=== PATIENT | female | born 1925 | race Caucasian/White ===

== ENCOUNTER → 2017-02-13 | Outpatient (CLI) | payer OTHER ==
--- NOTE | 2017-02-13 13:07 | PCVCIMAG ---
APPROVED REPORT Exam: Nuclear Stress Test Indication: CAD Patient Location: Out-Patient Stress Nurse: Kia Stover RN, Vanesa Travis RN [place] Tech:Azam VillasenorCLARIBEL Ht: 5 ft 10 in Wt: 150 lbs BSA: 1.85 m2 HR: 65 bpm BP: 200/90 mmHg BMI: 21.5 Rhythm: NSR Medical History Medical History: Age, Hyperlipidemia, HTN, MO, CAD Medications: Coreg, Lisinopril, Amlodipine, Atorvastatin Allergies: Codeine, Plavix, Oxycodone Previous Cardiac Procedures: PCI 2014, MARY RCA, Ant Infarct- medtx, Cardiomyopthay 33% Pretest Chest Pain Characteristics: No chest pain Exercise History: Physically active Meds Held (24 hrs): Carvedilol Stress Test Details Stress Test: Pharmacologic stress testing performed using 0.4 mg of regadenoson per 5 mL given IV over 10 seconds. Reason for pharmacologic stress test: physical limitation. HR Resting HR: 65 bpmMax Heart Rate (APMHR): 131 bpm Max HR Achieved: 92 bpmTarget HR (85% APMHR): 111 bpm % of APMHR: 70 Recovery HR: 77 bpm BP Resting BP: 200/90 mmHg Max BP: 202/82 mmHg ECG Resting ECG: Sinus Rhythm Stress ECG: LBBB, Sinus Rhythm, PVC's ST Change: Nondiagnostic V-pacing or LBBB Recovery ECG: Sinus Rhythm, PVC's Clinical Reason for Termination: Completed protocol Stress Symptoms: Nausea, Chest Tightness Symptoms resolved with caffeine. [place] EXAM: Myocardial Perfusion REST/STRESS Imaging Protocol: Rest Tc-99m/Stress Tc-99m 1 day Resting Data Rest SPECT myocardial perfusion imaging was performed in supine position 45 minutes following the intravenous injection of 11.2 mCi of Tc-99m Sestamibi. Time of rest injection: 0900 Date: 02/13/2017 Pharmacologic Stress Pharmacologic stress test was performed by injecting Regadenoson 0.4 mg IV push followed by the intravenous injection of 35.2 mCi of Tc-99m Sestamibi. Time of stress injection: 1015 Date: 02/13/2017 The images were gated to evaluate regional wall motion and calculate left ventricular ejection fraction. Prone imaging was performed. Study Quality Study: Good Study Data Post stress, the left ventricular ejection was 45%.. SSS: 28 SRS: 27 SDS: 2 TID = 1.19. Perfusion There is a medium area of severely reduced uptake in the apical segment of the anterior wall which is seen on the stress images as well as the resting images. This area is hypokinetic and is most consistent with myocardial scar. Wall Motion Mildly decreased left ventricular systolic function. Nuclear Conclusion ECG Findings: non-diagnostic Clinical Findings: non-diagnostic Nuclear Findings: negative for ischemia There are fixed defects consistent with infarct involving the distal anteroapical and distal inferior segments. There is mild to moderate segmental LV dysfunction, ejection fraction of 45%.
== END | disposition home or self-care (01) ==
LOC: PCVCIMAG 08:42
PROVIDERS: ATTEND Internal Medicine Cardiovascular Disease
DX: I25.10 Atherosclerotic heart disease of native coronary artery without angina pectoris (principal); I10 Essential (primary) hypertension; I25.2 Old myocardial infarction; I42.9 Cardiomyopathy, unspecified; K52.9 Noninfective gastroenteritis and colitis, unspecified; I49.3 Ventricular premature depolarization; E78.00 Pure hypercholesterolemia, unspecified; I44.7 Left bundle-branch block, unspecified; Z95.5 Presence of coronary angioplasty implant and graft; Z79.82 Long term (current) use of aspirin; Z90.49 Acquired absence of other specified parts of digestive tract
CPT/HCPCS: 78452; 93005; 93017; A9500; G0463

== ENCOUNTER → 2017-08-21 | Outpatient (CLI) | payer OTHER | END | disposition home or self-care (01) | LOC: PCVCIMAG 11:05 | DX: I08.1 Rheumatic disorders of both mitral and tricuspid valves (principal); I25.10 Atherosclerotic heart disease of native coronary artery without angina pectoris; I42.9 Cardiomyopathy, unspecified; I10 Essential (primary) hypertension; R60.9 Edema, unspecified; I25.2 Old myocardial infarction; Z79.82 Long term (current) use of aspirin; Z79.899 Other long term (current) drug therapy; R94.31 Abnormal electrocardiogram [ECG] [EKG] | CPT/HCPCS: 93005; 93306; G0463 ==